=== PATIENT | female | born 1975 | race Caucasian/White ===

== ENCOUNTER 2024-04-12 07:34 | Outpatient (CLI) | payer OTHER, SELFPAY ==
--- NOTE | ~2024-04-12 | MM_ITS ---
MM stereotactic bx LT, MM post biopsy invasive LT, MM stereotactic specimen LT EXAMINATION: MM stereotactic bx LT, MM post biopsy invasive LT, MM stereotactic specimen LT INDICATION: Abnormal calcifications in the left breast. Stereotactic core biopsy is requested evalua te for malignancy.] BREAST PARENCHYMAL COMPOSITION: Not dense: There are scattered areas of fibroglandular density. TECHNIQUE AND FINDINGS: The risks and potential benefits of the procedure were discussed with the patient and written informe d consent was obtained. The patient was placed in the prone position clustered at the table with the left breast in compression, and the area of interest was localized and targeted utilizing digital im aging with stereotaxis. After sterile preparation of the skin, 1% lidocaine was utilized for local anesthesia at the skin pun cture site and 1% lidocaine with epinephrine was utilized for deeper local anesthesia/is about the bi opsy site. A 9G Eviva vacuum assisted biopsy needle was advanced to the level of the calcification o f interest from a lateral approach utilizing stereotactic guidance and a total of 6 tissue core biops ies were obtained. A specimen radiograph demonstrates that the calcifications of interest are included within the tissue cores. A tissue marker clip was then placed at the biopsy site. The needle was removed and hemosta sis was achieved. The patient tolerated the procedure well and there is no evidence of significant i mmediate complication. The patient was given verbal as well as written postprocedural instructions p rior to discharge from the department. Tissue cores were submitted to surgical pathology for histolo gic analysis. A 2-view left unilateral digital mammogram was obtained post procedure and this demonstrates that the tissue marker clip is in expected position.] IMPRESSION: 1. Successful stereotactic biopsy of calcifications in the upper outer quadrant of the right breast with post procedure mammogram for marker placement. Please refer to pathology report for histologic analysis. Reviewed, dictated and finalized at location [] [facility] IMPRESSION: 1. Successful stereotactic biopsy of calcifications in the upper outer quadran t of the right breast with post procedure mammogram for marker placement. Plea se refer to pathology report for histologic analysis. IMPRESSION: 1. Successful stereotactic biopsy of calcifications in the upper outer quadran t of the right breast with post procedure mammogram for marker placement. Plea se refer to pathology report for histologic analysis.
== END 2024-04-12 07:35 | disposition home or self-care (01) ==
DX: N63.21 Unspecified lump in the left breast, upper outer quadrant (principal); N60.12 Diffuse cystic mastopathy of left breast
CPT/HCPCS: 19081; 88305